=== PATIENT | female | born 1960 | race African-American/Black ===

== ENCOUNTER 2024-11-10 12:28 | Emergency (ER) | payer MEDICARE, SELFPAY ==
[2024-11-10 12:36] VITALS: BP 118/87
[2024-11-10 13:14] LABS: Hematocrit 42.9 % (37.0-47.0); Hemoglobin 14.9 g/dL (12.0-16.0); Mean Corp Hgb Conc. 34.7 g/dL (33.0-37.0); Mean Corpuscular Volume 87.2 fL (81.0-99.0); Nucleated Red Blood Cells % 0 %; Platelet Count 236 10^3/uL (130-400); Red Cell Dist. Width 13.4 % (11.5-14.5)
[2024-11-10 13:41] LABS: ALT (SGPT) 25 U/L (0-35); AST (SGOT) 35 U/L (14-36); Albumin 4.6 g/dl (3.5-5.0); Alkaline Phosphatase 73 U/L (38-126); Blood Urea Nitrogen 11 mg/dl (7-17); Calcium 9.4 mg/dl (8.4-10.2); Carbon Dioxide 21 mmol/L (22-30); Chloride 106 mmol/L (98-107); Glucose 91 mg/dl (70-99); Potassium 4.2 mmol/L (3.5-5.1); Sodium 136 mmol/L (135-145); Total Protein 8.1 g/dl (6.3-8.2); eGFR > 60.00
[2024-11-10 13:45] LABS: Troponin I < 0.012 ng/ml
[2024-11-10 16:08] VITALS: BMI 23.9
[2024-11-10 17:00] VITALS: BP 103/80
[2024-11-10 18:36] VITALS: BP 119/93
--- NOTE | 2024-11-10 18:48 | ED.GENMED ---
History of Present Illness
General
Chief Complaint: Abnormal Lab Value
Time Seen by Provider: 11/10/24 15:00
History of Present Illness
History of Present Illness:
see MDM
Past History
Past History
ED Past Medical History: GERD and HTN
ED Past Surgical History: Other (Breast mass)
Social History
Tobacco: Smoker
Alcohol: Occasional
Drug: None
Personal: Single
Living: with family
Employment: Employed
Family History
Family History: Other (Noncontributory)
Phy Exam
Physical Exam
Physical Exam:
GENERAL: Alert , in no apparent distress
HEAD: NCAT
NECK: no midline tenderness, active ROM intact, no paraspinal muscle tenderness;
EYE: pupils equal and reactive, EOMs intact.
ENT: o/p clr, mmm. no hemotympanum
CARDIAC: Regular rate and rhythm, no edema
ribs: left lower mild posteriorly tender, no bruising
LUNGS: Clear breath sounds bilaterally, no acute respiratory distress, no wheezes/rales/rhonchi
ABDOMEN: Soft, without focal tenderness, no r/g, no cvat
NEUROLOGICAL: Alert and oriented, no focal neuro deficits, CN intact, 5/5 strength, sensation intact
SKIN: Warm and dry, bruise L buttock, mild tendneress
back: no midline tendenress, nomrla rom
MUSCULOSKELETAL: No edema, well perfused.
PSYCH: Normal and appropriate interaction.
Course
Orders/Labs/Results
Orders:
Orders
11/10/24 12:40
Electrocardiogram (*1) Urgent
Reason for Study: Other
Other Reason for Exam: abnormal finding
11/10/24 12:41
EKG- Treatment ONCE
11/10/24 12:49
Complete Blood Count/With Diff Urgent
Comprehensive Metabolic Panel Urgent
Troponin I Urgent
11/10/24 15:55
CT Angio Chest/Abd W/Wo Iv Contrast [CT Chest/abd Angio W/wo Iv Con] Urgent
Comment: wide mediastinum on xr, concern for aneurysm
Reason For Exam: fall down steps, chest pain, rib pain, hip pain;
Abnormal Lab Results
11/10/24
12:49
Carbon Dioxide 21 L mmol/L
(22-30)
11/10/24 12:49
11/10/24 12:49
Vital Signs
Initial and Last Documented VS:
Initial Vital Signs
Temp Pulse Resp BP Pulse Ox
36.7 C 91 20 118/87 98
11/10/24 12:36 11/10/24 12:36 11/10/24 12:36 11/10/24 12:36 11/10/24 12:36
Last Documented Vital Signs
Temp Pulse Resp BP Pulse Ox
36.7 C 70 21 103/80 96
11/10/24 12:36 11/10/24 17:00 11/10/24 17:00 11/10/24 17:00 11/10/24 17:00
MDM/Problems Addressed
Differential Diagnosis Includes:
see MDM
MDM/Problems Addressed:
Note:
CHIEF COMPLAINT(S)
Fall down a flight of stairs with subsequent pain and bruising.
HISTORY OF PRESENT ILLNESS
The patient, a female, reports falling down approximately 12 carpeted steps from the top of the staircase, landing into a door. The fall resulted in significant soreness and bruising, especially in the buttocks and lower back. The patient did not
lose consciousness during or after the fall. She describes having a painful morning with significant bruising on her buttocks and soreness in the lower back. The patient also mentioned experiencing transient chest pain and a sensation of tightness
in the rib cage. The chest pain was likely muscle spasms, described as a 'Al horse' in the chest region.
The patient denies any numbness or tingling in the legs, neck pain, nausea, dizziness, or feeling faint. she went to today for the L hip pain and mild L chest pain and had xxray and was sent for eval due to widended mediastinum; she only has L
sided rib pain now which is with palpation; no pleuritic pain or sob.
she denies taking blood thinners. The patient is ambulatory but notes general soreness.
PHYSICAL EXAM
see above
Nursing notes reviewed and vital signs reviewed.
PLAN
1. Obtain a chest CT scan with intravenous contrast to further evaluate the widened mediastinum noted in the previous chest X-ray and to screen for potential aortic concerns.
2. Perform a trauma scan through the chest, abdomen, and pelvis to rule out rib fractures, pelvic fractures, or injuries not evident in the X-ray.
3. Continue monitoring for any changes in the patients condition, especially focusing on the areas of impact and the previously observed chest abnormalities.
DIFFERENTIAL DIAGNOSIS
The Differential Diagnosis includes, in no particular order and is not limited to:
1. Musculoskeletal pain secondary to trauma
2. Rib fracture
3. Chest wall injury or contusion
4. Pulmonary contusion
5. Aortic injury
6. Sternal fracture
7. Muscle strain or spasm
8. Internal organ injury in the abdomen or pelvis
9. Pelvic fracture
10. Vertebral fracture
CARE-UPDATE
11/10/24 - 18:36
The patients thoracic ascending aorta measures 3.6 cm, which is slightly wider than normal but does not classify as an aneurysm, thus no immediate intervention is required besides regular monitoring. Annual or biannual imaging may be ordered by a
cardiothoracic surgeon or family doctor to ensure no further dilation occurs. Incidental lymphadenopathy noted; re-evaluation recommended within 3-6 months without signs indicative of sarcoidosis at present but should be monitored due to smoking
history. No cardiac events, rib fractures, or significant injuries found except for a healable pelvis fracture and bruising. Ensure final vital signs taken prior to discharge.
*Pulse Oximetry
SaO2: 96
Oxygen Mode of Delivery: Room air
Patient hypoxic: no (99)
*Critical Care Note
Total Time (30-74mins, 75-104mins- exclusive of procedures): Not Applicable
ED Attending Note
-
Portions of this chart may have been created with voice recognition software.� Occasional wrong word or��sound alike� substitutions may have occurred due to the inherent limitations of voice recognition software.
Discharge Plan
Departure
Patient Disposition: Home (Routine Discharge)
Date of Disposition: 11/10/24
Time of Disposition: 18:16
Patient with high blood pressure during this ER visit?: No
Condition: Fair
Covid-19: Not Applicable
Discharge Problem:
Lymphadenopathy, mediastinal, Fall, Pain in rib, Contusion of hip
Instructions: Hip Pain ED
Prescriptions:
No Action
aspirin 325 MG tablet,delayed release (DR/EC)
325 mg PO DAILY
Lactobacillus acidophilus [Acidophilus] 1 CAP capsule
1 cap PO DAILY
nicotine 14 MG patch 24 hour
14 mg transdermal DAILY 0RF
thiamine HCl (vitamin B1) 100 MG tablet
100 mg PO DAILY 0RF
folic acid 1 MG tablet
1 mg PO DAILY 0RF
pantoprazole 40 MG tablet,delayed release (DR/EC)
40 mg PO BID Qty: 60 0RF
cholecalciferol (vitamin D3) 50,000 UNIT capsule
50,000 unit PO WEEKLY Qty: 8 0RF
Referrals:
Ananda Wiseman MD [Family Provider, Family Practice]
Mendel Guerin MD [Active, Cardiac Surgery] - Follow up in 1 week
Activity Restrictions/Additional Instructions:
YOUR AORTA HAS MILD DILATION BUT NOT ENOUGH TO CALL [facility], MEASURING 3.6 CM (ASCENDING THORACIC AORTA)
THIS SHOULD BE FOLLOWED UP
ALSO YOU HAVE SOME NONSPECIFIC LYMPH NODE SWELLING
THIS ALSO NEEDS SURVEILLANCE
NO SIGNS OF TRAUMA TO YOUR RIBS OR ABDOMEN OR HIP FROM
LABS ARE GOOD
RETURN FOR ANY CONCERNS.
Interventions
Interventions:
*Risk Screen - Suicide Last Done: 11/10/24 18:21
*General Assessment Last Done: 11/10/24 12:36
*Neglect/Abuse Screening Last Done: 11/10/24 18:21
*ED- Fall Risk Assessment Last Done: 11/10/24 18:21
*ED COVID-19 Vaccine History Last Done: 11/10/24 18:21
*Nursing Disposition Last Done: 11/10/24 18:50
Discharge Date and Time
Print Language: WELSH
== END 2024-11-10 18:52 | disposition home or self-care (01) ==
LOC: EMR 12:28
PROVIDERS: Student in an Organized Health Care Education/Training Program; EMERGENCY PHYSICIAN Emergency Medicine; FAMILY PHYSICIAN Family Medicine
DX: S70.02XA Contusion of left hip, initial encounter (principal); S30.0XXA Contusion of lower back and pelvis, initial encounter; R07.89 Other chest pain; W10.9XXA Fall (on) (from) unspecified stairs and steps, initial encounter; R59.0 Localized enlarged lymph nodes; I77.810 Thoracic aortic ectasia; I10 Essential (primary) hypertension; K21.9 Gastro-esophageal reflux disease without esophagitis; F17.200 Nicotine dependence, unspecified, uncomplicated; Z79.82 Long term (current) use of aspirin
CPT/HCPCS: 99284; 71275; 74175; 80053; 84484; 85025; 93005; Q9967